=== PATIENT | male | born 1930 | race Caucasian/White ===

== ENCOUNTER 2021-06-19 13:02 | Inpatient (IN) ==
[2021-06-19 13:47] LABS: Basophils % 0.4 %; Eosinophils # 0.2 K/mcL (0.0-0.6); Eosinophils % 1.6 %; Hematocrit 32.5 % (37.5-50.1); Hemoglobin 10.5 g/dL (12.9-16.9); Immature Granulocytes % 0.6 % (0-4); Lymphocytes # 1.1 K/mcL (0.6-4.6); Mean Corpuscular HGB Conc 32.3 g/dL (31.6-35.5); Mean Corpuscular Hemoglobin 27.9 pg (28.0-33.3); Mean Corpuscular Volume 86.4 fL (83.0-100.0); Monocytes # 0.8 K/mcL (0.0-1.3); Monocytes % 8.3 %; Neutrophils # 7.2 K/mcL (1.6-8.9); Platelet Count 148 K/mcL (140-400); Red Blood Count 3.76 M/mcL (4.19-5.50); Red Cell Distribution Width 15.5 % (11.5-14.5); Segmented Neutrophils % 77.1 %; White Blood Count 9.3 K/mcL (4.3-11.1)
[2021-06-19 14:07] LABS: Albumin 3.5 g/dL (3.5-5.7); Albumin/Globulin Ratio 1.3 (1.1-2.2); Bilirubin,Total 0.3 mg/dL (0.3-1.0); Calcium 9.2 mg/dL (8.6-10.3); Globulin 2.7 g/dL (2.4-3.5); Magnesium 1.5 mg/dL (1.6-2.6); Phosphorous 3.8 mg/dL (2.7-4.5); Potassium 6.2 mEq/L (3.5-5.1); Total Protein 6.2 g/dL (6.4-8.9)
[2021-06-19] MEDS ORDERED: Calcium Gluconate 1gm/50mL 1 GM/50 ML BAG IVPB ONE ×2 (14:09→14:31)
[2021-06-19] MEDS ORDERED: Insulin Human Regular 5 UNIT in 0.9 % Sodium Chloride 10 ML IV ONE (14:10)
[2021-06-19] MEDS ORDERED: *HR* Dextrose 50 % in Water (Vial) 50 ML VIAL IVP ONE (14:10)
[2021-06-19] MEDS ORDERED: Albuterol 2.5 MG/3 ML NEBULIZER IH ONE (14:10)
[2021-06-19] MEDS ORDERED: 0.9 % Sodium Chloride 1,000 ML IVC ONE (14:11)
[2021-06-19 14:27] LABS: Bilirubin,Urine Negative (Negative); Blood,Urine Negative (Negative); Clarity,Urine Clear (Clear); Color,Urine Colorless (Yellow); Glucose,Urine (UA) Normal (Normal); Ketones,Urine Negative (Negative); Leukocyte Esterase,Urine Negative (Negative); Nitrite,Urine Negative (Negative); Protein,Urine Trace mg/dL (Neg-Trace); Specific Gravity,Urine 1.009 (1.010-1.025); Urobilinogen,Urine Normal (Normal)
[2021-06-19] MEDS ORDERED: Naloxone 0.4 MG/ML INJ IVP PRN (14:27)
[2021-06-19] MEDS ORDERED: Acetaminophen 325 MG TABLET PO PRN (14:27)
[2021-06-19] MEDS ORDERED: Ondansetron 4 MG/2 ML VIAL IVP PRN (14:27)
[2021-06-19] MEDS ORDERED: Insulin Human Regular 10 UNIT in 0.9 % Sodium Chloride 10 ML IV ONE (14:33)
[2021-06-19] MEDS: *HR* Dextrose 50 % in Water (Syg) 50 ML SYRINGE IVP ONE (15:12)
[2021-06-19] MEDS ORDERED: *HR* Dextrose 50 % in Water (Syg) 50 ML SYRINGE IVP PRN (17:14)
[2021-06-19] MEDS ORDERED: Dextrose Gel 15 GM/37.5 ML TUBE PO PRN ×2 (17:14)
[2021-06-19] MEDS ORDERED: D5% in Water 1,000 ML IVC PRN (17:14)
[2021-06-19 17:27] LABS: Potassium 4.8 mEq/L (3.5-5.1)
[2021-06-19] MEDS ORDERED: hydrALAZINE 25 MG TABLET PO PRN (17:44)
[2021-06-19] MEDS: 0.9 % Sodium Chloride 1,000 ML IVC SCH (18:05)
[2021-06-19] MEDS: *HR* Heparin 5,000 UNIT/ML VIAL SQ SCH (18:05)
[2021-06-19] MEDS: Insulin LISPRO 300 UNITS/3 ML VIAL SUBQ SCH (20:06)
[2021-06-19] MEDS: Mirtazapine 15 MG TABLET PO SCH (21:14)
[2021-06-20] MEDS: hydrALAZINE 25 MG TABLET PO SCH ×4 (00:42→23:49)
[2021-06-20] MEDS: *HR* Heparin 5,000 UNIT/ML VIAL SQ SCH ×2 (05:17→18:22)
[2021-06-20 05:55] LABS: Basophils % 0.4 %
[2021-06-20 05:57] LABS: Eosinophils # 0.1 K/mcL (0.0-0.6); Eosinophils % 2.6 %; Hematocrit 27.4 % (37.5-50.1); Hemoglobin 8.6 g/dL (12.9-16.9); Immature Granulocytes % 0.4 % (0-4); Immature Platelets 8.9 % (1.1-6.1); Lymphocytes # 1.1 K/mcL (0.6-4.6); Mean Corpuscular HGB Conc 31.4 g/dL (31.6-35.5); Mean Corpuscular Volume 86.2 fL (83.0-100.0); Mean Platelet Volume 13.3 fL (9.4-12.4); Monocytes # 0.5 K/mcL (0.0-1.3); Monocytes % 9.5 %; Neutrophils # 3.6 K/mcL (1.6-8.9); Platelet Count 110 K/mcL (140-400); Red Blood Count 3.18 M/mcL (4.19-5.50); Red Cell Distribution Width 15.4 % (11.5-14.5); Segmented Neutrophils % 67.1 %; White Blood Count 5.4 K/mcL (4.3-11.1)
[2021-06-20 06:02] LABS: Calcium 8.3 mg/dL (8.6-10.3); Magnesium 1.3 mg/dL (1.6-2.6)
[2021-06-20 06:15] LABS: Thyroid Stimulating Hormone 3.036 mcIU/mL (0.340-5.600)
[2021-06-20] MEDS: 0.9 % Sodium Chloride 1,000 ML IVC SCH (08:27)
[2021-06-20] MEDS: Cholecalciferol (D-3) 1,000 UNIT (25MCG) TABLET PO SCH (08:31)
[2021-06-20] MEDS: Aspirin Enteric Coated 81 MG Tablet PO SCH (08:31)
[2021-06-20] MEDS: allopurinoL 100 MG TABLET PO SCH (08:31)
[2021-06-20] MEDS: Insulin LISPRO 300 UNITS/3 ML VIAL SUBQ SCH ×4 (08:32→21:02)
[2021-06-20] MEDS: Mirtazapine 15 MG TABLET PO SCH (19:56)
[2021-06-21 04:56] LABS: Basophils % 0.5 %; Calcium 8.4 mg/dL (8.6-10.3); Eosinophils # 0.3 K/mcL (0.0-0.6); Eosinophils % 4.6 %; Hematocrit 26.8 % (37.5-50.1); Hemoglobin 8.6 g/dL (12.9-16.9); Immature Granulocytes % 0.7 % (0-4); Immature Platelets 8.7 % (1.1-6.1); Lymphocytes # 1.1 K/mcL (0.6-4.6); Lymphocytes % 19.9 %; Magnesium 1.6 mg/dL (1.6-2.6); Mean Corpuscular HGB Conc 32.1 g/dL (31.6-35.5); Mean Corpuscular Hemoglobin 27.7 pg (28.0-33.3); Mean Corpuscular Volume 86.2 fL (83.0-100.0); Mean Platelet Volume 13.9 fL (9.4-12.4); Monocytes # 0.5 K/mcL (0.0-1.3); Monocytes % 9.2 %; Neutrophils # 3.7 K/mcL (1.6-8.9); Platelet Count 108 K/mcL (140-400); Potassium 4.5 mEq/L (3.5-5.1); Red Blood Count 3.11 M/mcL (4.19-5.50); Red Cell Distribution Width 15.6 % (11.5-14.5); Segmented Neutrophils % 65.1 %; White Blood Count 5.7 K/mcL (4.3-11.1)
[2021-06-21 04:57] LABS: Iron 49 mcg/dL (65-175)
[2021-06-21 05:13] LABS: Ferritin 198 ng/mL (20-250)
[2021-06-21 05:18] LABS: Folate 9.6 ng/mL (3.0-16.0)
[2021-06-21] MEDS: *HR* Heparin 5,000 UNIT/ML VIAL SQ SCH (05:53)
[2021-06-21 08:03] VITALS: BP 172/71; PULSE 62; TEMP 97.7; O2SAT 97
[2021-06-21] MEDS: Insulin LISPRO 300 UNITS/3 ML VIAL SUBQ SCH (09:27)
[2021-06-21] MEDS: allopurinoL 100 MG TABLET PO SCH (09:42)
[2021-06-21] MEDS: Cholecalciferol (D-3) 1,000 UNIT (25MCG) TABLET PO SCH (09:42)
[2021-06-21] MEDS: hydrALAZINE 25 MG TABLET PO SCH (09:42)
[2021-06-21] MEDS: Aspirin Enteric Coated 81 MG Tablet PO SCH (09:42)
[2021-06-22] MEDS ORDERED: calcitrioL 0.25 MCG CAPSULE PO SCH (09:00)
[2021-06-22 10:23] LABS: Estimated Average Glucose 154 mg/dl
[2021-06-23 21:56] LABS: % Iron Saturation 22 % (20-55); Transferrin 181 mg/dL (203-362)
== END 2021-06-21 09:55 | disposition home or self-care (01) | DRG 641 ==
LOC: 3BNU 13:02 → EMEROOARM 13:02 → SUATTDRO 14:44 → 3BNU 15:52
PROVIDERS: ADMIT Family Medicine; ATTEND Pharmacist